=== PATIENT | female | born 1955 | race Caucasian/White ===

== ENCOUNTER 2019-06-30 11:14 | Observation (INO) | payer MEDICARE, BC ==
[~2019-06-30 11:14] MED LIST: Ondansetron 4 MG/2 ML SDV ONE
[2019-06-30] MEDS ORDERED: Meclizine 12.5 MG Tab ONE (11:20)
[2019-06-30] MEDS ORDERED: Ondansetron 4 MG/2 ML SDV IVPUSH PRN (11:28)
[2019-06-30 11:54] LABS: CHLORIDE,CL 105 mEq/L (98-106); SODIUM,NA 143 mEq/L (136-145)
[2019-06-30] MEDS ORDERED: Meclizine 12.5 MG Tab PO ONE (11:57)
--- NOTE | 2019-06-30 12:25 | EDM.PDOC ---
ED HPI GENERAL MEDICAL PROBLEM - General Chief Complaint: General Stated Complaint: DIZZY Time Seen by Provider: 06/30/19 11:25 Source of Information: Reports: Patient History Limitations: Reports: No Limitations - History of Present Illness INITIAL COMMENTS - FREE TEXT/NARRATIVE: Patient presents to ER with complaints of dizziness, nausea and vomiting that started approximately one hour ago. Was babysitting her grandkids, making a cake. Noted acute dizziness when she bent over. She denies any head trauma. No recent URI. Had been feeling good. Unable to lie back or look up at this time as increases dizziness. States "feels okay if I sit and hold my head still ". She had a remote history of CVA 3 years ago. Is currently not on antiplatelet therapy. Was evaluated in [place] at that time. Had CT scan 3 months after that did show she had a CVA but she had no deficits at that time. She denies any weakness in her arms or legs. No double or blurred vision if keeps head still. No chest pain, shortness of breath, or abdominal pain. Onset: Today, Sudden Duration: Hour(s): Location: Reports: Head Severity: Severe Improves with: Reports: Rest Worsens with: Reports: Movement Associated Symptoms: Reports: Nausea/Vomiting. Denies: Confusion, Chest Pain, Cough, Fever/Chills, Loss of Appetite, Shortness of Breath, Syncope, Weakness - Related Data Allergies Allergy/AdvReac Type Severity Reaction Status Date / Time No Known Allergies Allergy Verified 04/11/16 08:52 Home Meds: Home Meds Hydrochlorothiazide 25 mg PO DAILY 04/10/16 [History] Lisinopril 10 mg PO DAILY 04/10/16 [History] Multivitamin [Daily Multiple Vitamin] 1 tab PO DAILY 04/10/16 [History] Omeprazole 20 mg PO DAILY 04/10/16 [History] Potassium Chloride 10 meq PO DAILY 04/10/16 [History] levETIRAcetam [Levetiracetam] 250 mg PO BID 04/10/16 [History] predniSONE 20 mg PO DAILY 04/10/16 [History] Calcium Carbonate [Calcium] 600 mg PO DAILY 04/11/16 [History] Past Medical History Cardiovascular History: Reports: High Cholesterol, Hypertension Neurological History: Reports: CVA - Past Surgical History HEENT Surgical History: Reports: Tonsillectomy GI Surgical History: Reports: Cholecystectomy Social & Family History - Family History Family Medical History: Noncontributory - Tobacco Use Smoking Status *Q: Never Smoker ED ROS GENERAL - Review of Systems Review Of Systems: See Below Constitutional: Denies: Fever, Chills, Malaise, Weakness, Fatigue, Decreased Appetite HEENT: Reports: Vertigo. Denies: Ear Pain, Sinus Problem, Throat Pain Respiratory: Denies: Shortness of Breath, Cough Cardiovascular: Denies: Chest Pain, Edema, Lightheadedness Endocrine: Denies: Fatigue GI/Abdominal: Reports: Nausea, Vomiting. Denies: Abdominal Pain, Hematochezia, Melena : Reports: No Symptoms Musculoskeletal: Reports: No Symptoms Skin: Reports: No Symptoms Neurological: Reports: Dizziness. Denies: Headache, Syncope Psychiatric: Reports: No Symptoms ED EXAM, GENERAL - Physical Exam Exam: See Below Exam Limited By: No Limitations General Appearance: Alert, WD/WN, Mild Distress Eye Exam: Right Eye: Nystagmus, Bilateral Eye: EOMI, PERRL Ears: Normal External Exam, Normal TMs Nose: Normal Inspection, Normal Mucosa, No Blood Throat/Mouth: Normal Inspection, Normal Oropharynx Head: Normocephalic Neck: Normal Inspection, Supple, Non-Tender Respiratory/Chest: No Respiratory Distress, Lungs Clear, Normal Breath Sounds Cardiovascular: Regular Rate, Rhythm, No Edema GI/Abdominal: Normal Bowel Sounds, Soft, Non-Tender Neurological: Alert, Oriented, CN II-XII Intact, Normal Cognition, Normal Gait, Normal Reflexes, No Motor/Sensory Deficits Skin Exam: Warm, Dry Course - Vital Signs Last Recorded V/S: Last Vital Signs Temp 98.2 F 06/30/19 11:29 Pulse 74 06/30/19 11:50 Resp 18 06/30/19 11:29 BP 145/81 H 06/30/19 11:50 Pulse Ox 98 06/30/19 11:29 - Orders/Labs/Meds Orders: Active Orders 24 hr Category Date Time Status Ondansetron [Zofran] Med 06/30/19 11:28 Active 4 mg IVPUSH STAT PRN Medication Orders Ondansetron HCl (Zofran) 4 mg IVPUSH STAT PRN PRN Reason: Nausea Last Admin: 06/30/19 11:25 Dose: 4 mg Labs: Laboratory Tests 06/30/19 06/30/19 06/30/19 Range/Units 11:35 11:35 11:35 WBC 4.6 L (5.0-10.0) 10^3/uL RBC 5.01 (4.00-5.50) 10^6/uL Hgb 14.0 (12.0-16.0) g/dL Hct 41.8 (37.0-47.0) % MCV 83.4 (82.0-94.0) fL MCH 27.9 (27.0-32.0) pg MCHC 33.5 (33.0-38.0) g/dL RDW Coeff of Maral 12.9 (11.0-15.0) % Plt Count 186 (150-400) 10^3/uL Neut % (Auto) 63.2 (35-85) % Lymph % (Auto) 25.5 (10-55) % [place] % (Auto) 9.4 (0-16) % Eos % (Auto) 1.7 (0-5) % Baso % (Auto) 0.2 (0-3) % Neut # (Auto) 2.89 (1.80-7.00) 10^3/uL Lymph # (Auto) 1.17 (1.00-4.80) 10^3/uL [place] # (Auto) 0.43 (0.00-0.80) 10^3/uL Eos # (Auto) 0.08 (0.00-0.45) 10^3/uL Baso # (Auto) 0.01 10^3/uL PT 10.5 (9.7-12.3) SEC INR 1.02 (0.92-1.18) APTT 24.7 (23.2-32.3) SEC Sodium 143 (136-145) mEq/L Potassium 3.8 (3.5-5.0) mEq/L Chloride 105 (98-106) mEq/L Carbon Dioxide 29 (21-32) mmol/L BUN 18 (7-18) mg/dL Creatinine 0.7 (0.6-1.0) mg/dL Est Cr Clr Drug Dosing 75.01 mL/min Estimated GFR (MDRD) > 60 (>=60) mL/min Glucose 128 H (75-99) mg/dL Calcium 9.4 (8.4-10.1) mg/dL Lactate Dehydrogenase 182 (100-190) U/L Creatine Kinase 82 (21-215) U/L Troponin I < 0.017 (0.00-0.06) ng/mL Meds: Medications Generic Name Dose Route Start Last Admin Trade Name Freq PRN Reason Stop Dose Admin Ondansetron HCl 4 mg 06/30/19 11:28 06/30/19 11:25 Zofran IVPUSH 4 mg STAT PRN Administration Nausea Discontinued Medications Generic Name Dose Route Start Last Admin Trade Name Freq PRN Reason Stop Dose Admin Meclizine HCl Confirm 06/30/19 11:20 06/30/19 11:52 Antivert Administered 06/30/19 11:21 Not Given Dose 12.5 mg .ROUTE .STK-MED ONE Meclizine HCl 12.5 mg 06/30/19 11:57 06/30/19 12:00 Antivert PO 06/30/19 11:58 12.5 mg ONETIME ONE Administration Ondansetron HCl Confirm 06/30/19 11:10 06/30/19 11:52 Zofran Administered 06/30/19 11:11 Not Given Dose 4 mg .ROUTE .STK-MED ONE - Re-Assessments/Exams Free Text/Narrative Re-Assessment/Exam: 06/30/19 12:27 Labs normal. EKG normal. Awaiting ability to do CT as unable to lie flat at this point yet. Departure - Departure Time of Disposition: 12:27 Disposition: Refer to Observation Condition: Fair Clinical Impression: Vertigo - Discharge Information *PRESCRIPTION DRUG MONITORING PROGRAM REVIEWED*: No *COPY OF PRESCRIPTION DRUG MONITORING REPORT IN PATIENT JABIER: No - Problem List & Annotations (1) Vertigo SNOMED Code(s): 043196852 Code(s): R42 - DIZZINESS AND GIDDINESS Status: Acute Priority: High Current Visit: Yes - Problem List Review Problem List Initiated/Reviewed/Updated: Yes - My Orders Last 24 Hours: My Active Orders 06/30/19 11:28 Ondansetron [Zofran] 4 mg IVPUSH STAT PRN - Assessment/Plan Admission H&P: Please use this note as an admission H&P Last 24 Hours: My Active Orders 06/30/19 11:28 Ondansetron [Zofran] 4 mg IVPUSH STAT PRN Assessment:: Vertigo Plan: Admit observation. Cardiac monitoring. CT of head when able. Phenergan for dizziness and nausea as Zofran has not improved symptoms. IV fluids. Attempt canalith repositioning when able.
[2019-06-30] MEDS ORDERED: Acetaminophen 325 MG Tab PO PRN (12:46)
[2019-06-30] MEDS ORDERED: Promethazine 25 MG in Sodium Chloride 0.9% 50 ML IV PRN (12:46)
[2019-06-30] MEDS ORDERED: Sodium Chloride 0.9% 1,000 ML IV SCH (12:46)
[2019-06-30] MEDS ORDERED: Ondansetron 4 MG/2 ML SDV IV PRN (12:46)
[2019-06-30] MEDS ORDERED: Sodium Chloride 0.9% 10 ML Syringe FLUSH PRN (12:46)
[2019-06-30] MEDS ORDERED: Temazepam 15 MG Cap PO PRN (17:16)
[2019-06-30] MEDS: Meclizine 12.5 MG Tab PO SCH (19:57)
[2019-07-01 07:32] LABS: CHLORIDE,CL 109 mEq/L (98-106); SODIUM,NA 145 mEq/L (136-145)
[2019-07-01 07:37] VITALS: BP 114/57; PULSE 71
[2019-07-01] MEDS: Meclizine 12.5 MG Tab PO SCH ×2 (07:42→09:29)
[2019-07-01] MEDS ORDERED: Potassium Chloride 10 MEQ Tab.ER PO SCH (08:00)
[2019-07-01] MEDS ORDERED: Lisinopril 10 MG Tab PO SCH (08:00)
[2019-07-01] MEDS ORDERED: Non-Formulary Medication 1 Each (Rosuvastatin Calcium [Rosuvastatin Calcium] 20 MG) PO SCH (20:00)
--- NOTE | 2019-07-04 08:41 | PCM.DCSUM1 ---
Discharge Summary - Hospital Course Free Text/Narrative:: Carolyn is a 63 year old female who presented to ER with complaints of acute onset dizziness, nausea and vomiting. Was babysitting her grandkids, making a cake. Noted sudden onset dizziness when she bent over. No recent URI or head trauma. Up to that point, was feeling good. On presentation, was unable to lie back on the bed or look up as dizziness increased. Patient has not experienced vertigo like this in the past. Had a CVA 3 years ago with no retirement sequelae. Had a CT scan after the event that did show the CVA. No deficits at this time. Patient denied any weakness in extremities on presentation to ER. No double or blurred vision. No chest pain, shortness of breath or abdominal pain. Was given zofran in the ER without relief. All labs , EKG normal. Admitted for ongoing neurological and cardiac monitoring. IV fluids. Start Meclizine. Diagnosis: Stroke: No Modified [place] Scale: No Symptoms at All Modified [place] Scale Score: 0 - Discharge Data Discharge Date: 07/01/19 Discharge Disposition: Home, Self-Care 01 Condition: Good - Referral to Home Health Primary Care Physician: PING Souza - Discharge Diagnosis/Problem(s) (1) Vertigo SNOMED Code(s): 832768000 ICD Code: R42 - DIZZINESS AND GIDDINESS Status: Acute Priority: High - Patient Summary/Data Complications: none Consults: Consultations 06/30/19 15:20 PT Evaluation and Treatment [CONS] Routine Hospital Course: Patient doing well. Was initially given zofran yesterday without any improvement. IV Phenergan was given, slept and had resolution of the dizziness. Had canalith repositioning after that and were unable to reproduce any symptoms. She continued to be symptom free through the night. Repeat labs this am are all still normal. EKG unchanged. Were able to get a CT scan of her head which was negative. Will discharge home on Meclizine as needed. If symptoms recur, follow up with Dr. Vences sooner than next week for recheck. - Patient Instructions Diet: Usual Diet as Tolerated Activity: As Tolerated - Discharge Plan *PRESCRIPTION DRUG MONITORING PROGRAM REVIEWED*: No *COPY OF PRESCRIPTION DRUG MONITORING REPORT IN PATIENT JABIER: No Prescriptions/Med Rec: Meclizine [Antivert] 25 mg PO TID PRN #30 tablet PRN Reason: Dizziness Home Medications: Home Meds Lisinopril 5 mg PO DAILY 04/10/16 [History] Multivitamin [Daily Multiple Vitamin] 1 tab PO DAILY 04/10/16 [History] Calcium Carbonate [Calcium] 600 mg PO DAILY 04/11/16 [History] Potassium Chloride [Klor-Con M20] 20 meq PO DAILY 06/30/19 [History] Rosuvastatin Calcium 20 mg PO Q48H 06/30/19 [History] Meclizine [Antivert] 25 mg PO TID PRN #30 tablet 07/01/19 [Rx] Forms: ED Department Discharge Referrals: Jesús Vences MD [ED Physician] - (Follow up with Dr. Vences in one week ) - Discharge Summary/Plan Comment DC Time >30 min.: No - General Info Date of Service: 07/01/19 Admission Dx/Problem (Free Text: Vertigo Functional Status: Reports: Pain Controlled, Tolerating Diet, Ambulating - Review of Systems General: Denies: Fever, Fatigue, Malaise HEENT: Denies: Ear Pain, Sore Throat, Rhinitis Pulmonary: Denies: Shortness of Breath, Cough Cardiovascular: Denies: Chest Pain, Edema, Lightheadedness Gastrointestinal: Denies: Nausea, Vomiting Genitourinary: Reports: No Symptoms Musculoskeletal: Reports: No Symptoms Skin: Reports: No Symptoms Neurological: Denies: Weakness - Patient Data Vitals - Most Recent: Last Vital Signs Temp 96.8 F 07/01/19 07:36 Pulse 71 07/01/19 07:36 Resp 16 07/01/19 07:36 BP 114/57 L 07/01/19 07:36 Pulse Ox 97 07/01/19 07:36 Weight - Most Recent: 152 lb Med Orders - Current: Current Medications Discontinued Medications Acetaminophen (Tylenol) 650 mg PO Q4H PRN PRN Reason: Pain (Mild 1-3)/fever Promethazine HCl 25 mg/ Sodium (Chloride) 51 mls @ 100 mls/hr IV Q6H PRN PRN Reason: Nausea/Vomiting Last Admin: 06/30/19 13:19 Dose: 100 mls/hr Sodium Chloride (Normal Saline) 1,000 mls @ 125 mls/hr IV ASDIRECTED SURYA Stop: 06/30/19 19:00 Last Admin: 06/30/19 13:19 Dose: 125 mls/hr Lisinopril (Prinivil) 5 mg PO DAILY [facility] Meclizine HCl (Antivert) Confirm Administered Dose 12.5 mg .ROUTE .STK-MED ONE Stop: 06/30/19 11:21 Last Admin: 06/30/19 11:52 Dose: Not Given Meclizine HCl (Antivert) 12.5 mg PO ONETIME ONE Stop: 06/30/19 11:58 Last Admin: 06/30/19 12:00 Dose: 12.5 mg Meclizine HCl (Antivert) 25 mg PO TID [facility] Last Admin: 07/01/19 09:29 Dose: Not Given Non-Formulary Medication (Rosuvastatin Calcium [Rosuvastatin Calcium]) 20 mg PO Q48H [facility] Ondansetron HCl (Zofran) Confirm Administered Dose 4 mg .ROUTE .STK-MED ONE Stop: 06/30/19 11:11 Last Admin: 06/30/19 11:52 Dose: Not Given Ondansetron HCl (Zofran) 4 mg IVPUSH STAT PRN PRN Reason: Nausea Last Admin: 06/30/19 11:25 Dose: 4 mg Ondansetron HCl (Zofran) 4 mg IV Q6H PRN PRN Reason: Nausea/Vomiting Potassium Chloride (Klor-Con 10) 20 meq PO DAILY [facility] Sodium Chloride (Saline Flush) 10 ml FLUSH ASDIRECTED PRN PRN Reason: Keep Vein Open Temazepam (Restoril) 15 mg PO BEDTIME PRN PRN Reason: Insomnia - Exam General: Reports: Alert, Oriented HEENT: Reports: Mucous Membr. Moist/[place] Neck: Reports: Supple Lungs: Reports: Clear to Auscultation, Normal Respiratory Effort Cardiovascular: Reports: Regular Rate, Regular Rhythm GI/Abdominal Exam: Normal Bowel Sounds, Soft, Non-Tender Extremities: Normal Inspection, No Pedal Edema Skin: Reports: Warm, Dry Neurological: Reports: No New Focal Deficit
== END 2019-07-01 09:10 | disposition home or self-care (01) ==
LOC: CC.ED 11:14 → UNDOADMOB 12:20 → CC.MS 12:20
PROVIDERS: ADMIT Physician Assistant Medical; ATTEND Family Medicine
DX: R42 Dizziness and giddiness (principal); R11.2 Nausea with vomiting, unspecified; E78.00 Pure hypercholesterolemia, unspecified; I10 Essential (primary) hypertension; Z79.899 Other long term (current) drug therapy
CPT/HCPCS: 36415; 70450; 80048; 82550; 83615; 84484; 85025; 85610; 85730; 93005; 93010; 96365; 96375; 97161; 99217; 99220; 99284; A9270; G0378; J2405; J2550; J7030; J7050; 96374

== ENCOUNTER → 2021-05-17 | Day surgery (SDC) | payer MEDICARE, BC ==
[~2021-05-17] MED LIST changes: +Lactated Ringers 1,000 ML IV SCH; -Ondansetron 4 MG/2 ML SDV ONE; +Propofol 200 MG/20 ML SDV ONE
[2021-05-17 10:45] VITALS: PULSE 56
[2021-05-17 10:46] VITALS: BP 106/48
--- NOTE | 2021-05-17 12:48 | OR ---
DATE OF OPERATION: 05/17/2021 PREOPERATIVE DIAGNOSIS: FAMILY HISTORY OF COLON CANCER. POSTOPERATIVE DIAGNOSIS: FAMILY HISTORY OF COLON CANCER. SURGEON: Jesús Vences MD PROCEDURE: SURVEILLANCE COLONOSCOPY. ANESTHESIA: MAC. COMPLICATIONS: None. SPECIMEN: None. FINDINGS: 1. Full-length colonoscopy. 2. Mild sigmoid diverticulosis. RECOMMENDATIONS: Followup colonoscopy every 5 years. INDICATIONS: The patient has a family history of colon cancer in her mother. She is due for a 5-year scope. DESCRIPTION OF PROCEDURE: The patient was prepped and draped, placed in the left lateral decubitus position. A lubricated Olympus colonoscope was inserted and with relative ease advanced to the cecum. Direct visualization of the ileocecal valve and appendiceal orifice was accomplished. Bowel prep was adequate. Upon withdrawal of the scope throughout the length of the colon, I could find no polyps, masses, ulceration, or bleeding sites. No vascular abnormalities or signs of colitis. The patient does have scattered diverticula in the sigmoid area, mild in severity. No inflammatory changes seen. The rectal vault was benign. Retroflexion showed no perianal lesions. Air was suctioned and the scope removed without complication. TRUDY/OCTAVIANO /[id number]
== END ==
LOC: CC.SDS 08:21
PROVIDERS: ATTEND Family Medicine
DX: Z12.11 Encounter for screening for malignant neoplasm of colon (principal); K57.30 Diverticulosis of large intestine without perforation or abscess without bleeding; E11.9 Type 2 diabetes mellitus without complications; D35.00 Benign neoplasm of unspecified adrenal gland; R53.83 Other fatigue; K21.9 Gastro-esophageal reflux disease without esophagitis; I10 Essential (primary) hypertension; E78.5 Hyperlipidemia, unspecified; E87.6 Hypokalemia; Z80.0 Family history of malignant neoplasm of digestive organs; Z79.899 Other long term (current) drug therapy; Z98.890 Other specified postprocedural states
CPT/HCPCS: G0105; J2704; J7120; 00812

== ENCOUNTER 2025-02-12 15:27 | Emergency (ER) | payer MEDICARE ==
[2025-02-12 15:58] VITALS: BP 153/79; PULSE 77
[2025-02-12] MEDS: Aspirin 81 MG Tab.Chew PO ONE (16:09)
[2025-02-12 16:17] LABS: BASOPHILS ABSOLUTE AUTO 0.04 10^3/uL (0.00-0.50); BASOPHILS PERCENT AUTO 0.6 % (0-1); EOSINOPHILS ABSOLUTE AUTO 0.17 10^3/uL (0.00-1.50); EOSINOPHILS PERCENT AUTO 2.6 % (0-6); HEMOGLOBIN 13.8 g/dL (12.0-16.0); IMMATURE GRAN ABSOLUTE AUTO 0.01 10^3/uL (0.00-0.49); IMMATURE GRAN PERCENT AUTO 0.2 % (0.0-4.9); LYMPHOCYTES ABSOLUTE AUTO 1.46 10^3/uL (0.60-5.00); LYMPHOCYTES PERCENT AUTO 22.5 % (24-44); MEAN CORPUSCULAR HEMOGLOBIN 27.5 pg (27.0-32.0); MEAN CORPUSCULAR HGB CONC 32.9 g/dL (32.0-36.0); MEAN CORPUSCULAR VOLUME 83.8 fL (83.0-97.0); MONOCYTES ABSOLUTE AUTO 0.63 10^3/uL (0.00-1.50); MONOCYTES PERCENT AUTO 9.7 % (0-10); NEUTROPHILS ABSOLUTE AUTO 4.19 x10^3/uL (1.80-8.00); NEUTROPHILS PERCENT AUTO 64.4 % (41-71); PLATELET COUNT,PLT 207 10^3/uL (150-400); RED BLOOD CELL COUNT 5.01 x10^6/uL (4.00-5.50); WHITE BLOOD CELL COUNT,WBC 6.5 10^3/uL (4.0-11.0)
[2025-02-12 16:25] LABS: ALANINE AMINOTRANSFERASE,ALT 33 U/L (12-78); ALBUMIN 4.3 g/dL (3.4-5.0); ALKALINE PHOSPHATASE 103 U/L (46-116); ASPARTATE AMNIOTRANSFERASE,AST 19 U/L (15-37); BILIRUBIN TOTAL 0.4 mg/dL (0.0-1.0); BLOOD UREA NITROGEN,BUN 16 mg/dL (7-18); C-REACTIVE PROTEIN < 0.50 mg/dL (<=0.50); CALCIUM 9.7 mg/dL (8.4-10.1); CARBON DIOXIDE,CO2 29 mmol/L (21-32); CHLORIDE,CL 104 mEq/L (98-106); CREATININE 0.9 mg/dL (0.6-1.0); ESTIMATED GFR 68 mL/min (>=60); GLUCOSE RANDOM 115 mg/dL (75-99); LIPASE 37 U/L (16-77); POTASSIUM,K 3.8 mEq/L (3.5-5.0); PROTEIN TOTAL,TP 7.6 g/dL (6.4-8.2); SODIUM,NA 142 mEq/L (136-145)
[2025-02-12] MEDS: Alum Hydrox/Mag Hydrox/Simeth 30 ML, Lidocaine 2% 15 ML PO ONE (16:43)
== END 2025-02-12 17:40 | disposition home or self-care (01) ==
LOC: CC.ED 15:27
DX: R07.2 Precordial pain (principal); R07.89 Other chest pain; R12 Heartburn; I10 Essential (primary) hypertension; E78.00 Pure hypercholesterolemia, unspecified; Z86.73 Personal history of transient ischemic attack (TIA), and cerebral infarction without residual deficits; Z79.82 Long term (current) use of aspirin; Z79.84 Long term (current) use of oral hypoglycemic drugs; Z79.899 Other long term (current) drug therapy
CPT/HCPCS: 36415; 71046; 80053; 83690; 83735; 84484; 85025; 85730; 86140; 93010; 99284; 99285; A9270